=== PATIENT | male | born 1980 | race African-American/Black ===

== ENCOUNTER 2016-12-12 12:12 | Emergency (ER) | payer BC ==
[2016-12-12] MEDS ORDERED: Acetaminophen 500 MG TAB ONE (12:36)
== END 2016-12-12 12:47 | disposition home or self-care (01) ==
LOC: NAV ERS 12:12
DX: H66.92 Otitis media, unspecified, left ear (principal); H60.92 Unspecified otitis externa, left ear; I10 Essential (primary) hypertension; F17.220 Nicotine dependence, chewing tobacco, uncomplicated
CPT/HCPCS: 99282

== ENCOUNTER 2022-01-20 11:42 | Emergency (ER) | payer BC | END 2022-01-20 12:35 | disposition home or self-care (01) | LOC: NAV ERS 11:42 | DX: L73.1 Pseudofolliculitis barbae (principal); I10 Essential (primary) hypertension; F41.9 Anxiety disorder, unspecified; E11.9 Type 2 diabetes mellitus without complications; F17.220 Nicotine dependence, chewing tobacco, uncomplicated | CPT/HCPCS: 93005 ==

== ENCOUNTER 2024-01-21 02:53 | Emergency (ER) | payer BC, SELFPAY ==
[2024-01-21 03:15] LABS: #Basophils 0.1 thou/uL (0.0-0.2); #Eosinphils 0.2 thou/uL (0.0-0.7); #Lymphocytes 2.8 thou/uL (1.20-3.40); #Monocytes 0.5 thou/uL (0.11-0.59); #Neutrophils 3.4 thou/uL (1.40-6.50); %Basophils 1.3 % (0.0-1.0); %Eosinophils 2.3 % (0.0-10.0); %Lymphocytes 40.2 % (21.0-51.0); %Monocytes 7.3 % (0.0-10.0); Hematocrit 46.9 % (42.0-52.0); Hemoglobin 14.6 g/dL (14.0-18.0); Mean Corpuscular HGB CONC 31.1 g/dL (32.0-36.0); Mean Corpuscular Hemoglobin 28.5 pg (27.0-31.0); Mean Corpuscular Volume 91.7 fl (78.0-98.0); Mean Platelet Volume 6.3 fL (7.4-10.4); Platelet Count 242 10x3/uL (130-400); RBC Distribution Width 12.6 % (11.5-14.5); Red Blood Cell (RBC) Count 5.11 mill/uL (4.70-6.10); White Blood Cell (WBC) Count 6.8 10x3/uL (4.8-10.8)
[2024-01-21] MEDS ORDERED: Aspirin Chewable 81 MG TAB ONE (03:21)
[2024-01-21] MEDS ORDERED: Sodium Chloride 0.9% 1,000 ML ONE (03:22)
[2024-01-21] MEDS ORDERED: Nitroglycerin 2% Ointment 1 INCH/1 GM Packet ONE (03:22)
[2024-01-21 03:30] LABS: ALT (SGPT) 86 U/L (8-55); AST (SGOT) 44 U/L (5-34); Albumin 4.2 g/dL (3.5-5.0); Alkaline Phosphatase 69 U/L (40-110); Anion Gap 17 mmol/L (10-20); BUN (Urea Nitrogen) 9 mg/dL (8.9-20.6); Bilirubin, Total 0.3 mg/dL (0.2-1.2); Calc. Creatinine Clearance 0 mL/min (70-130); Calcium 9.1 mg/dL (7.8-10.44); Carbon Dioxide 22 mmol/L (22-29); Chloride 105 mmol/L (98-107); Estimated GFR 86; Globulin 3.1 g/dL (2.4-3.5); Glucose 225 mg/dL (70-105); Lipase 46 U/L (8-78); Potassium 3.7 mmol/L (3.5-5.1); Protein, Total 7.3 g/dL (6.0-8.3); Sodium 140 mmol/L (136-145)
[2024-01-21 03:31] LABS: Troponin I Less than 0.010 ng/mL (< 0.028)
[2024-01-21 06:37] LABS: Troponin I Less than 0.010 ng/mL (< 0.028)
== END 2024-01-21 06:50 | disposition home or self-care (01) ==
LOC: NAV ERS 02:53
DX: R07.9 Chest pain, unspecified (principal); R74.01 Elevation of levels of liver transaminase levels; I10 Essential (primary) hypertension; E11.9 Type 2 diabetes mellitus without complications; F17.220 Nicotine dependence, chewing tobacco, uncomplicated; Z79.899 Other long term (current) drug therapy; Z79.84 Long term (current) use of oral hypoglycemic drugs
CPT/HCPCS: 71045; 80053; 83690; 84484; 85025; 85379; 93005; 96360; J7050